=== PATIENT | male | born 1955 | race Caucasian/White ===

== ENCOUNTER → 2016-10-08 | Outpatient (CLI) | payer BC ==
[~2016-10-08] MED LIST: NF-FLON16G NS; PRAV40TA2 PO
--- NOTE | 2016-10-08 12:00 | Diagnostic Imaging Report ---
INDICATION: Right scrotal pain. Palpable right scrotal abnormality for three weeks. COMPARISON: None. DISCUSSION: Sonographic evaluation of the scrotum was performed. There is a benign 1.3 cm cyst noted within the right epididymal head which likely accounts for palpable abnormality. Additional 5 mm cyst noted incidentally within the left epididymis, benign. The testicles appear normal and symmetric in echotexture and size bilaterally with normal spectral and color Doppler blood flow. The right testicle measures 3.8 x 2.2 x 2.8 cm. Left testicle measures 3.1 x 2.2 x 2.8 cm. No varicocele or hydrocele identified. IMPRESSION: 1. Benign-appearing cyst within the right epididymal head appears to account for the patient's palpable finding. No acute abnormality otherwise identified. Dictated by: Dictated on workstation # [id number]
== END ==
LOC: RAD 10:52
PROVIDERS: ATTEND Nurse Practitioner Family
DX: N50.811 Right testicular pain (principal); N50.3 Cyst of epididymis
CPT/HCPCS: 76870

== ENCOUNTER → 2017-02-26 | Outpatient (CLI) | payer BC ==
--- NOTE | 2017-02-26 13:51 | Diagnostic Imaging Report ---
INDICATION: Right wrist pain. Injury on Friday. EXAMINATION: Right wrist dated 02/26/2017. COMPARISON: None. TECHNIQUE: Three views of the right wrist were performed. FINDINGS: There is a vague lucency noted within the distal radius which extends into the radiocarpal joint space. This is highly suspicious for a nondisplaced fracture line. Minimal irregularity or buckling is noted posteriorly. In addition, there is a density within the dorsum of the wrist at the level of the carpal bones which is usually seen in a triquetral fracture, correlate for focal point tenderness. Radiocarpal joint space narrowing and spurring are noted. IMPRESSION: 1. Suspected nondisplaced fracture of the distal radius, likely intra-articular. 2. Possible acute triquetral fracture as well. Soft tissue swelling is noted. 3. The report was called and faxed to Chela at the office of TAYE Juares, by [email or web address]@1:50 PM. Dictated by: Dictated on workstation # [id number]
== END ==
LOC: RAD 13:10
PROVIDERS: ATTEND Physician Assistant Surgical
DX: M25.531 Pain in right wrist (principal)
CPT/HCPCS: 73110